=== PATIENT | male | born 1955 ===

== ENCOUNTER 2020-09-14 15:34 | Emergency (ER) | payer OTHER ==
[~2020-09-14] VITALS: Wt 89.8 kg
[2020-09-14] MEDS ORDERED: METHOTREXATE2.5 MG PO (15:53)
[2020-09-14] MEDS ORDERED: DULOXETINE HCL60 MG PO (15:54)
[2020-09-14] MEDS ORDERED: DELTASONE1 MG PO (15:55)
[2020-09-14] MEDS ORDERED: CALCIUM CITRAT200 M1 PO (15:56)
[2020-09-14] MEDS ORDERED: PRAVACHOL20 MG PO (15:56)
[2020-09-14] MEDS ORDERED: VITAMIN D325 MCG PO (15:57)
[2020-09-14] MEDS ORDERED: SULFASALAZINE500 M1 PO (15:58)
[2020-09-14] MEDS ORDERED: NATURE'S BLEND F1 MG PO (15:59)
[2020-09-14] MEDS ORDERED: CYCLOBENZAPRINE5 M3 PO (18:18)
== END 2020-09-14 18:42 | disposition home or self-care (01) ==
LOC: ED 15:34
DX: S70.211A Abrasion, right hip, initial encounter (principal); Z79.899 Other long term (current) drug therapy; W17.89XA Other fall from one level to another, initial encounter; Y93.89 Activity, other specified; Y92.89 Other specified places as the place of occurrence of the external cause; Y99.8 Other external cause status